=== PATIENT | female | born 1980 | race African-American/Black ===

== ENCOUNTER 2018-11-26 12:57 | Emergency (ER) | payer MEDICAID ==
[~2018-11-26] VITALS: Ht 167.6 cm; Wt 61.2 kg
[2018-11-26 13:04] VITALS: Ht 167.6 cm; Wt 61.2 kg
[2018-11-26 14:18] LABS: BASOPHIL % 0.3 % (0-2); PLATELET COUNT 225 x10^3mcL (130-400); RED CELL DISTRIBUTION WIDTH 14.1 % (11.5-14.5)
[2018-11-26 14:23] LABS: CALCIUM 8.9 mg/dL (8.5-10.1); CARBON DIOXIDE 27.3 mmol/L (21-32); CHLORIDE SERUM 103 mmol/L (98-107); CREATININE SERUM 0.8 mg/dL (0.6-1.0); GFR1 > 60 mL/min; GLUCOSE SERUM 89 mg/dL (74-106); POTASSIUM SERUM 4.5 mmol/L (3.5-5.1); SODIUM SERUM 137 mmol/L (136-145)
[2018-11-26 14:34] LABS: ALBUMIN 3.6 g/dL (3.4-5.0); ALKALINE PHOSPHATASE 69 U/L (46-116); ALT/SGPT 20 U/L (14-59); AST/SGOT 15 U/L (15-37); BILIRUBIN TOTAL 0.38 mg/dL (0.20-1.00); TOTAL PROTEIN, SERUM 7.4 g/dL (6.4-8.2)
[2018-11-26 15:35] VITALS: BP 102/64
== END 2018-11-26 15:35 | disposition home or self-care (01) ==
LOC: ED 12:57
PROVIDERS: Emergency Medicine
DX: J01.90 Acute sinusitis, unspecified (principal)
CPT/HCPCS: 36415; J0692; J1885; J2270; J2765

== ENCOUNTER 2019-01-16 14:05 | Emergency (ER) | payer MEDICAID ==
[~2019-01-16] VITALS: Ht 167.6 cm; Wt 59.0 kg
[2019-01-16 14:09] VITALS: BP 110/63; Ht 167.6 cm; Wt 59.0 kg
== END 2019-01-16 14:34 | disposition home or self-care (01) ==
LOC: ED 14:05
DX: J01.01 Acute recurrent maxillary sinusitis (principal); F17.210 Nicotine dependence, cigarettes, uncomplicated
CPT/HCPCS: 99406

== ENCOUNTER 2019-06-10 10:26 | Emergency (ER) | payer MEDICAID ==
[~2019-06-10] VITALS: Ht 167.6 cm; Wt 58.1 kg
[2019-06-10 10:30] VITALS: Ht 167.6 cm; Wt 58.1 kg
[2019-06-10 14:18] VITALS: BP 108/83
== END 2019-06-10 14:18 | disposition home or self-care (01) ==
LOC: ED 10:26
DX: S29.011A Strain of muscle and tendon of front wall of thorax, initial encounter (principal); R03.0 Elevated blood-pressure reading, without diagnosis of hypertension; Y04.8XXA Assault by other bodily force, initial encounter; Y93.89 Activity, other specified; Y92.89 Other specified places as the place of occurrence of the external cause; Y99.8 Other external cause status
CPT/HCPCS: J1885

== ENCOUNTER 2020-07-17 14:37 | Emergency (ER) | payer MEDICAID ==
[~2020-07-17] VITALS: Ht 167.6 cm; Wt 60.8 kg
[2020-07-17 15:00] VITALS: BP 119/76; Ht 167.6 cm; Wt 60.8 kg
[2020-07-17 19:19] LABS: BASOPHIL % 0.6 % (0.2-1.3); PLATELET COUNT 237 x10^3mcL (179-408); RED CELL DISTRIBUTION WIDTH 13.6 % (12.3-17.7)
[2020-07-17 19:22] LABS: rbc morphology (normal/abnorm) NORMAL (NORMAL)
[2020-07-17 19:36] LABS: ALBUMIN 4.3 g/dL (3.4-5.0); ALKALINE PHOSPHATASE 56 U/L (46-116); ALT/SGPT 24 U/L (14-59); AST/SGOT 17 U/L (15-37); BILIRUBIN TOTAL 1.2 mg/dL (0.20-1.00); CALCIUM 9.5 mg/dL (8.5-10.1); CARBON DIOXIDE 25.8 mmol/L (21-32); CHLORIDE SERUM 101 mmol/L (98-107); CREATININE SERUM 0.7 mg/dL (0.6-1.0); GFR1 > 60 mL/min; GLUCOSE SERUM 91 mg/dL (74-106); POTASSIUM SERUM 3.8 mmol/L (3.5-5.1); SODIUM SERUM 136 mmol/L (136-145)
== END 2020-07-17 20:33 | disposition home or self-care (01) ==
LOC: ED 14:37
PROVIDERS: Emergency Medicine
DX: F41.9 Anxiety disorder, unspecified (principal); K21.9 Gastro-esophageal reflux disease without esophagitis; R20.2 Paresthesia of skin